=== PATIENT | male | born 1940 | race Caucasian/White ===

== ENCOUNTER 2019-05-14 18:12 | Inpatient (IN) | payer OTHER ==
[~2019-05-14] VITALS: Ht 167.6 cm; Wt 63.5 kg
[2019-05-14 18:15] VITALS: BP 164/75
[2019-05-14 19:33] LABS: BASOPHILS 0.8 % (0.0-2.0); EOSINOPHILS 2.7 % (0.0-3.0); HEMATOCRIT 39.8 % (42.0-52.0); HEMOGLOBIN 13.3 gm/dL (14.0-18.0); MCH 30.6 pg (26.0-34.0); MCHC 33.5 g/dL (28.0-37.0); MCV 91.5 fL (80.0-100.0); MONOCYTES 7.8 % (1.0-8.0); PLATELET COUNT 223 thou/uL (150-400); POLYS 68.7 % (36.0-66.0); RBC 4.35 mil/uL (4.50-6.00); RDW 14.3 % (10.5-14.5); WBC 7.2 thou/uL (4.0-11.0)
[2019-05-14 19:40] LABS: CALCIUM 6.5 mg/dL (8.5-10.1); CREATININE 0.4 mg/dL (0.7-1.3); POTASSIUM 3.4 mmol/L (3.5-5.1)
[2019-05-14 19:46] LABS: ALBUMIN 2.1 g/dL (3.4-5.0); TOTAL BILIRUBIN 0.4 mg/dL (<0.1-1.0); TOTAL PROTEIN 4.9 g/dL (6.4-8.2)
[2019-05-14 19:53] LABS: URINE BILIRUBIN NEGATIVE (Negative); URINE BLOOD NEGATIVE (Negative); URINE CLARITY CLEAR; URINE COLOR YELLOW; URINE GLUCOSE-RANDOM* NEGATIVE (Negative); URINE KETONES NEGATIVE (Negative); URINE LEUKOCYTES-REFLEX NEGATIVE (Negative); URINE NITRITE-REFLEX NEGATIVE (Negative); URINE PROTEIN (DIPSTICK) NEGATIVE (Negative); URINE UROBILINOGEN 0.2 E.U./dl (0.2-1.0)
[2019-05-14 20:52] VITALS: BP 170/77
--- NOTE | 2019-05-14 20:53 | NUR ---
HANDOFF TOOL PRINTED TO 4 WEST
[2019-05-14 21:59] VITALS: BP 156/72
[2019-05-14 22:14] VITALS: BP 156/72
[2019-05-15 00:09] VITALS: BP 160/52
--- NOTE | 2019-05-15 01:57 | NUR ---
new admission. patient aox3 confused and forgetful. patient admitted for ble cellulitis. patient has +3 edema on both feet. patient is continent of both bowel and bladder, patient uses urinal. patient skin is dry, patient is unkempt needs a shower, patient refused to take a shower said he want to sleep possible will take one in the morning. patient dont remember what medication he takes at home and pharmacy he uses, family will bring med list tomorrow per patient .patient need maximum assistance with adl, bed mobility, transfer and toileting. no scd d/t patient having cellulities on ble. patient asleep at this time breathing regular and unlaboured.
[2019-05-15 04:18] VITALS: BP 122/54
[2019-05-15 05:15] LABS: CALCIUM 8.2 mg/dL (8.5-10.1); CREATININE 0.7 mg/dL (0.7-1.3); POTASSIUM 4.2 mmol/L (3.5-5.1)
[2019-05-15 07:48] VITALS: BP 137/75
[2019-05-15 14:35] VITALS: BP 133/58
--- NOTE | 2019-05-15 18:35 | NUR ---
PT VITAL SIGNS STABLE THROUGHOUT SHIFT. PT FAMILY IN TO VISIT- THEY STATED PT'S "HOME ENVIRONMENT IS NOT SAFE, HOUSEMATE IS EQUALLY DEBILITATED AND UNABLE TO CARE FOR SELF". CONSULT IN FOR CASE MANAGEMENT, COPY OF MEDICARE CARD ON CHART. PT COMPLIANT WITH POC. FALL PRECAUTIONS IN PLACE, NO C/O PAIN, SOA OR N/V.
[2019-05-15 19:30] VITALS: BP 135/51
--- NOTE | 2019-05-16 04:08 | NUR ---
PATIENT IS ALERT AND ORIENTED X2. IMPULSIVE AND DIFFICULTY FOLLOWING INSTRUCTIONS. IVF INFUSING W/O COMPLICATION. INCONTINENT OF BOWEL AND BLADDER, HOWEVER, USING THE URINAL A FEW TIMES SUCCESSFULLY. PATIENT NEEDS ONE ASSIST FOR TRANSFER. DENIES PAIN. SLEEPING OFF AND ON DURING THE NIGHT. RESTING AT TIME OF NOTE. WILL MONITOR.
[2019-05-16 08:11] VITALS: BP 135/62
--- NOTE | 2019-05-16 10:05 | NUR ---
Assess due to admit dx of cellulitis and failure to thrive. Pt also with left foot ulcer. Pt lives alone and has had difficulty with memory, and has self care deficit in possible need of placement. Visit this am, sitting up and stated hungry to eat breakfast. He does not feel he has lost any weight. Did not observe muscle/fat wasting. States "people bring me food at home". Prefers milk on every tray and likes all foods. Low nutrition risk
--- NOTE | 2019-05-16 11:20 | NUR ---
WOUND CONSULT; INITIAL ASSESSMENT TODAY. LEFT FOOT ULCER TO THE LEFT FOOT DORSUM, YELLOW FIBRINOUS WOUND BED, MACERATED. EDEMATOUS AND TENDER. RECOMMEDATIONS; THERAHONEY TO WOUND BED CHANGE M/W/F. COVER WITH A FOAM DRESING. DISCUSSED WITH SAÚL
--- NOTE | 2019-05-16 13:53 | NUR ---
PT ADMITTED RELATED TO CELLULITIS OF BULATERAL FEET, AND FAILURE TO THRIVE. CM REVIEWED CHART AND SPOKE WITH CARE TEAM. CM MET WITH PT, BROTHER VARGAS, AND PT'S SISTER IN LAW JUSTIN AT BEDSIDE THIS DAY. THEY INDICATED THAT PT HAD BEEN LIVING IN A HOUSE WITH HIS FEMALE FRIEND LORENZO. HE INDICATED THERE ARE 12 STEPS TO ENTER THE HOUSE AND THAT PT CAN'T NAVIGATE STEPS THEREFORE DOESN'T LEAVE THE HOUSE OFTEN. THEY INDICATED THAT LORENZO WHO SLEEPS ON THE COUCH GOES AND GETS THEM FAST FOOD. THEY INDICATED THAT PT USES A 4WW WITH A SEAT TO ASSIST WITH MOBILITY BUT THAT HE HAD STILL FALLEN IN THE PAST. FAMILY INDICATED THAT THEY DON'T FEEL PT IS SAFE TO RETURN HOME ONCE MEDICALLY STABLE. THEY INDICATED PT IS AGREEABLE. CM PROVIDED SNF LIST FOR REVIEW AND CM WILL FOLLOW INDICATED WITH DC PLANNING.
[2019-05-16 14:16] VITALS: BP 147/61
--- NOTE | 2019-05-16 16:09 | NUR ---
dp sent facesheet to [facility] request they see patient for secondary medical tejinder for payers source for ltc
--- NOTE | 2019-05-16 19:35 | NUR ---
ASSUMED CARE 0700. A/OX2, IMPULSIVE WHEN WANTING TO USE URINAL. WOUND NURSE ROUNDED ON PT WITH DRESSING CARE GIVEN. DR CURRY CONSULTED FOR LEFT TOE PAIN. INDEPENDENT WITH MEALS. NO BM NOTED TODAY. FALL PRECAUTIONS IN PLACE. PT DOES NOT CALL APPROPRIATELY. STAFF TO ANTICIPATE NEEDS.
[2019-05-16 22:17] VITALS: BP 121/83
--- NOTE | 2019-05-17 04:17 | NUR ---
ASSUMED CARE OF PT @1900 PT AWAKE AND ORIENTED X2. SLIGHTLY CONFUSED AND FORGETFULL. USES URINAL AT BEDSIDE AND CAN BE IMPULSIVE WHILE WANTING TO GO. UNABLE TO USE CALL LIGHT HOURLY ROUNDING DONE AND POC. PT PULLED OUT IV AND NEW IV INSERTED. BED IN LOW POSITION AND CALL LIGHT WITHIN REACH WILL CONTINUE TO MONITOR.
[2019-05-17 05:36] VITALS: BP 144/74
[2019-05-17 08:34] VITALS: BP 131/69
--- NOTE | 2019-05-17 11:44 | NUR ---
[facility] SENT INITIAL REFERRAL TO [facility] TODAY.
--- NOTE | 2019-05-17 14:50 | NUR ---
ASSUMED CARE 0700. ALERT TO SELF AND SITUATION. IMPULSIVE WHEN NEEDING TO USE URINAL. REIFORCE THE CALL LIGHT. REPOSITIONS SELF IN BED.WOUND CARE PROVIDED. CONSULT TO PACK MASTER. UP WITH ASSIST X1 WITH GAIT BELT/WALKER. CONTINUE TO MONITOR.
--- NOTE | 2019-05-17 16:02 | NUR ---
DP sent referrals to [facility].
--- NOTE | 2019-05-17 17:17 | NUR ---
CM SPOKW WITH PT'S BROTHER AND SISTER IN LAW AND THEY ASKED THAST REFERRALS BE SENT TO [facility]. REFERRALS SENT. C, TO FOLLOW INDICATED WITH DC PLANNING.
[2019-05-17 20:55] VITALS: BP 142/69
--- NOTE | 2019-05-18 04:00 | NUR ---
Assumed pt care at 1900. Pt alert to self and place,able to follow instructions and has been able to use the urinal through the night. Denies pain on assessment. VSS. Dsg in place on left dorsal foot, slightly red on alison LE. Fall precautions implemented,hourly rounding done. Resting quietly with no distress noted at this time. Will continue to monitor pt.
[2019-05-18 04:45] VITALS: BP 152/80
--- NOTE | 2019-05-18 13:40 | NUR ---
Received asleep on bed. Due medications given as prescribed. A+Ox2- self and place, pt reoriented from time to time. On room air. Able to use urinal to pass urine. With IV at R hand, NS 75cc/hr infusing well. Up with assist of 1, able to sit out on chair. Pt seen by Dr Olmos today. With wound at foot- wound team aware. Pt a/w SNF- CM aware. Vital signs stable. Assisted in ADLs.
--- NOTE | 2019-05-18 14:10 | NUR ---
merchandise planner sent referral to [facility] fax [phone]
[2019-05-18 15:31] VITALS: BP 147/71
--- NOTE | 2019-05-18 17:37 | NUR ---
PT HAS BEEN ACCEPTED FOR ADMISSION AT [facility]. THEY HAVE SUBMITTED FOR AUTH. CM TO FOLLOW INDICATED WITH DC PLANNING.
[2019-05-18 19:12] VITALS: BP 142/73
--- NOTE | 2019-05-19 02:40 | NUR ---
Assumed pt care at 1900. Pt A/O to self&place able to make needs known. Denies pain on assessment. Drsg in place on left foot. Voiding per urinal. Up with assist of 1 RW/GB. Fall precautions in place,frequent checks done.Will continue to monitor pt.
[2019-05-19 03:47] VITALS: BP 146/73
[2019-05-19 07:21] VITALS: BP 133/68
[2019-05-19] MEDS ORDERED: PAIN & FEVER325 MG PO (09:53)
[2019-05-19] MEDS ORDERED: KEFLEX500 M1 PO (09:53)
[2019-05-19 14:47] VITALS: BP 132/62
--- NOTE | 2019-05-19 15:50 | NUR ---
discharge orders faxed to ziyad grewal community engagement coordinator. verified received.
--- NOTE | 2019-05-19 15:56 | NUR ---
[facility] RECIEVED AUTH FOR PT TO ADMIT THIS DAY. ORDERES HAVE BEEN FAXED. REPORT TO BE CALLED TO . CHART COPY ORDERED. CM NOTIFIED PT'S BROTHER REMINGTON AND HIS . PT IS AWARE AND AGREEABLE. NO OTHER CM INTERVENTION INDICATED. CASE CLOSED.
--- NOTE | 2019-05-19 20:24 | NUR ---
PATIENT ORIENTED TO SELF. PATIENT DISCHARGE TO [facility] FOR ADDITIONAL WOUND CARE AND STRENGHTENING. REPORT GIVEN TO BERNARDINO AT [facility]. PATIENT DISCHARGED WITH DISCHARGE PACKET AND ALL PERSONAL BELONGINGS. TRANSPORTED WITH [facility].
== END 2019-05-19 16:57 | DRG 603 ==
LOC: ER 18:12 → 4W 20:19 → EROBS 20:19 → 4W 22:14
PROVIDERS: Nurse Practitioner Family; Physician Assistant; ADMIT Internal Medicine
DX: L03.116 Cellulitis of left lower limb (principal); G93.40 Encephalopathy, unspecified; E78.5 Hyperlipidemia, unspecified; I10 Essential (primary) hypertension; L03.115 Cellulitis of right lower limb; F17.210 Nicotine dependence, cigarettes, uncomplicated; Z60.2 Problems related to living alone; D64.9 Anemia, unspecified; F03.90 Unspecified dementia, unspecified severity, without behavioral disturbance, psychotic disturbance, mood disturbance, and anxiety; Z79.899 Other long term (current) drug therapy
CPT/HCPCS: 10047